=== PATIENT | male | born 1980 | race Caucasian/White ===

== ENCOUNTER 2020-11-12 19:27 | Emergency (ER) | payer OTHER ==
[2020-11-12 19:42] VITALS: BP 158/85; PULSE 85; RESP 20; TEMP 98.1
--- NOTE | 2020-11-12 20:02 | ED ---
General Adult HPI - General Chief complaint: Syncope Stated complaint: Syncope Time Seen by Provider: 11/12/20 19:44 Source: patient Mode of arrival: wheelchair Limitations: no limitations - History of Present Illness Initial comments: Dictation was produced using [employer] dictation software. please excuse any grammatical, word or spelling errors. This patient was cared for during a federal and state declared state of emergency secondary to Covid 19 Chief Complaint: 40-year-old male presents with syncope and back pain History of Present Illness: Patient is 40-year-old male. He is a regular marijuana user. Patient states he had an episode of syncope around known today. Patient states he had 2 of his friends with him. He was not told that he any convulsive episodes. Patient states that after fall he noticed he had severe back pain. Patient states his pain associated look a to the midline back. States that pain radiates down his bilateral posterior thighs. Patient denies any loss of bowel or bladder control. Denies any saddle anesthesia. No fever or chills or night sweats. Patient states he felt fine prior to the episode of syncope. Patient has any cardiac disease. Patient does not follow with a doctor regularly. He denies any medications on a regular basis. He prefers homeopathic and natural treatments. Patient does not want any blood draws, needle sticks or medicine administration. The ROS documented in this emergency department record has been reviewed and confirmed by me. Those systems with pertinent positive or negative responses have been documented in the HPI. All other systems are other negative and/or noncontributory. PHYSICAL EXAM: General Impression: Alert and oriented x3, acute distress secondary to pain HEENT: Normocephalic atraumatic, extra-ocular movements intact, pupils equal and reactive to light bilaterally, mucous membranes moist. Cardiovascular: Heart regular rate and rhythm Chest: Able to complete full sentences, no retractions, no tachypnea Abdomen: abdomen soft, non-tender, non-distended, no organomegaly Musculoskeletal: Pulses present and equal in all extremities, no peripheral edema Back: Tenderness to his lumbar spinal area, positive straight leg test bilaterally Motor: no focal deficits noted Neurological: CN II-XII grossly intact, no focal motor or sensory deficits noted Skin: Intact with no visualized rashes Psych: Normal affect and mood ED course: 40-year-old male resents to the emergency department for back pain after syncopal fall. Vital signs upon arrival are within acceptable limits. EKGs benign. Physical examination is benign. Patient's well-appearing and does have stable vital signs. No indication for laboratory evaluation. Furthermore, patient is refusing any blood draws. EKG is unremarkable without any signs of hypertrophic cardiomyopathy, prolonged QT, WPW, ARVD or Brugada. Patient is refusing blood draw, he is also refusing any oral medications. Patient however is agreeable for CT imaging. Computed tomography scan of the lumbar spine shows no acute processes this out. A BA L5-S1 disc bulge without any spinal cord compromise. Patient is agreeable for discharge. He is given referral to a back specialist. Patient advised to rest. EKG interpretation: Ventricular rate 61, normal sinus rhythm,. Interval 22, QRS 80, QTc 392. No MN prolongation, no QTC prolongation, no ST or T-wave changes noted. Overall, this EKG is unremarkable - Related Data Allergies Allergy/AdvReac Type Severity Reaction Status Date / Time No Known Allergies Allergy Verified 11/12/20 19:42 Review of Systems ROS Statement: Those systems with pertinent positive or pertinent negative responses have been documented in the HPI. ROS Other: All systems not noted in ROS Statement are negative. Past Medical History Past Medical History: No Reported History Past Surgical History: No Surgical Hx Reported Past Psychological History: No Psychological Hx Reported Smoking Status: Never smoker Past Alcohol Use History: None Reported Past Drug Use History: Marijuana General Exam Limitations: no limitations Course Vital Signs 11/12/20 19:40 Temperature 98.1 F Pulse Rate 85 Respiratory 20 Rate Blood Pressure 158/85 O2 Sat by Pulse 99 Oximetry Disposition Clinical Impression: Back pain Disposition: HOME SELF-CARE Condition: Good Instructions (If sedation given, give patient instructions): Acute Low Back Pain (ED) Is patient prescribed a controlled substance at d/c from ED?: No Referrals: January Boone DO [Doctor of Osteopathic Medicine] - 1-2 days Time of Disposition: 20:31
--- NOTE | 2020-11-12 20:23 | CT ---
EXAMINATION TYPE: CT lumbar spine wo con DATE OF EXAM: 11/12/2020 COMPARISON: None HISTORY: Syncopal episode, fall, low back pain. CT DLP: 1644.6 mGycm Automated exposure control for dose reduction was used. Images were obtained from T12 to S2 vertebra without contrast. Lumbar vertebra have normal alignment. Disc spaces are fairly normal. There is no paraspinal mass. Th ere is no compression fracture. Sacroiliac joints appear intact. Posterior elements are intact. Facet joints appear normal. The neural foramina appear widely patent. There is small posterior disc bulgin g at L5-S1 without compromise of the spinal canal. IMPRESSION: Negative CT scan of the lumbar spine.
== END 2020-11-12 20:42 | disposition home or self-care (01) ==
LOC: EC 19:27
DX: M54.9 Dorsalgia, unspecified (principal); R55 Syncope and collapse
CPT/HCPCS: 72131; 93005; 99284

== ENCOUNTER 2025-01-12 17:43 | Emergency (ER) | payer OTHER ==
--- NOTE | 2025-01-12 18:15 | ED ---
General Adult HPI - General Chief complaint: Neuro Symptoms/Deficit Stated complaint: arms are numb and vision change Time Seen by Provider: 01/12/25 18:05 Source: patient, family Mode of arrival: ambulatory Limitations: no limitations - History of Present Illness Initial comments: Dictation was produced using [employer] dictation software. please excuse any g rammatical, word or spelling errors. Chief Complaint: 44-year-old male with no significant comorbidities presents emergency department for bitemporal hemianopsia, concerns of seizure and neuropathy History of Present Illness: Patient is a 44-year-old male he was in [place] driving back. Last night at around 7 PM he started to feel the chills. Patient states that he had a seizure after being tremulous. He woke up on the floor covered in poop and without his clothes on. States that at that time he had some tingling to both of his hands and his leg. States that the neuropathy symptoms resolved on its own. States that he is having bitemporal hemianopsia. Denies any obvious sick contacts. No neck stiffness or neck pain. The ROS documented in this emergency department record has been reviewed and confirmed by me. Those systems with pertinent positive or negative responses have been documented in the HPI. All other systems are other negative and/or noncontributory. - Related Data Home Medications Medication Instructions Recorded Confirmed No Known Home Medications 01/12/25 01/12/25 Allergies Allergy/AdvReac Type Severity Reaction Status Date / Time No Known Allergies Allergy Verified 01/12/25 18:36 Review of Systems ROS Statement: Those systems with pertinent positive or pertinent negative responses have been documented in the HPI. ROS Other: All systems not noted in ROS Statement are negative. Past Medical History Past Medical History: No Reported History Past Surgical History: No Surgical Hx Reported Past Psychological History: No Psychological Hx Reported Smoking Status: Never smoker Past Alcohol Use History: None Reported Past Drug Use History: Marijuana General Exam - General Exam Comments Initial Comments: PHYSICAL EXAM: General Impression: Alert and oriented x3, not in acute distress HEENT: Normocephalic atraumatic, extra-ocular movements intact, pupils equal and reactive to light bilaterally, mucous membranes moist. Cardiovascular: Heart regular rate and rhythm Chest: Able to complete full sentences, no retractions, no tachypnea Abdomen: abdomen soft, non-tender, non-distended, no organomegaly Musculoskeletal: Pulses present and equal in all extremities, no peripheral edema Motor: no focal deficits noted Neurological: CN II-XII grossly intact, no focal motor or sensory deficits noted Skin: Intact with no visualized rashes Psych: Normal affect and mood Limitations: no limitations Course Vital Signs 01/12/25 17:50 Temperature 101.6 F H Pulse Rate 102 H Respiratory 20 Rate Blood Pressure 157/99 O2 Sat by Pulse 96 Oximetry EKG Findings - EKG Comments: EKG Findings:: My EKG interpretation: Ventricular rate 97, sinus rhythm,. 135, QRS 92, QTc 382. No ME prolongation, no QTC prolongation, no ST or T-wave changes notedOverall, this EKG is unremarkable Medical Decision Making - Medical Decision Making Was pt. sent in by a medical professional or institution ([facility], DOOR OPENER, urgent care, hospital, or custodial...) When possible be specific @ -No Did you speak to anyone other than the patient for history (EMS, parent, family, police, friend...)? What history was obtained from this source @ -No Did you review nursing and triage notes (agree or disagree)? Why? @ -I reviewed and agree with nursing and triage notes Were old charts reviewed (outside hosp., previous admission, EMS record, old EKG, old radiological studies, urgent care reports/EKG's, custodial records)? Report findings @ -No old charts were reviewed Differential Diagnosis (chest pain, altered mental status, abdominal pain women, abdominal pain men, vaginal bleeding, musculoskeletal, weakness, fever, dyspnea, syncope, headache, dizziness, GI bleed, back pain, seizure, CVA, palpatations, mental health)? @ -Differential Fever: Pneumonia, viral URI, endocarditis, myocarditis, pericarditis, otitis, sinusitis, peritonsillar Abscess, retropharyngeal Abscess, epiglottitis, peritonitis, appendicitis, Lesli cystitis, diverticulitis, hepatitis, colitis, UTI, PID, TOA, pyelonephritis, prostatitis, epididymitis, meningitis, encephalitis, pulmonary embolism, CVA, thyroid storm, pancreatitis, adrenal crisis, cavernous sinus thrombosis, this is not meant to be an all-inclusive list. EKG interpreted by me (3pts min.). @ -See above X-rays interpreted by me (1pt min.). @ -Chest x-ray shows no acute processes CT interpreted by me (1pt min.). @ -CT brain shows no acute processes U/S interpreted by me (1pt. min.). @ -None done What testing was considered but not performed or refused? (CT, X-rays, U/S, labs)? Why? @ -None What meds were considered but not given or refused? Why? @ -None Was smoking cessation discussed for >3mins.? @ -No Were there social determinants of health that impacted care today? How? (Homelessness, low income, unemployed, alcoholism, drug addiction, transportation, low edu. Level, literacy, decrease access to med. care, senior care, rehab)? @ -No Was there de-escalation of care discussed even if they declined (Discuss DNR or withdrawal of care, Hospice)? DNR status @ -No What co-morbidities impacted this encounter? (DM, HTN, Smoking, COPD, CAD, Cancer, CVA, ARF, Chemo, Hep., AIDS, mental health diagnosis, sleep apnea, morbid obesity)? @ -None Was patient admitted / discharged? Hospital course, mention meds given and route, prescriptions, significant lab abnormalities, going to OR and other pertinent info. @ -44-year-old male presents emergency department with fever, flulike symptoms associated with bilateral temporal hemianopsia and syncope. Patient has no significant comorbidities. Vital signs upon arrival shows pyrexia of one 1.6 heart rate of 102. Rest of labs unremarkable. Patient well-appearing at the bedside without any focal findings. Laboratory evaluation obtained. CBC metabolic panel is unremarkable. Influenza A is positive. CT brain is unremarkable chest x-ray nonacute. Patient reevaluated bedside after given fluids and antipyretics with improvement of symptoms. Likely these are all flu related symptoms. Mechanical compression of the optic chiasm was considered giv en that patient did have complaint of bilateral temporal hemianopsia. Told to follow-up with his primary care doctor or schedule appoint with neurologist if his symptoms do not improve. Patient offered Tamiflu and did not feel that that was necessary. Told to take [id number] Motrin Tylenol for fever. Did you discuss the management of the patient with other professionals (professionals i.e. , PA, DOOR OPENER, lab, RT, psych nurse, psychologist social, meat market manager, teacher, conservation enforcement officer, renal case manager)? Give summary @ -No Was critical care preformed (if so, how long)? @ -No Undiagnosed new problem with uncertain prognosis? @ -No Drug Therapy requiring intensive monitoring for toxicity (Heparin, Nitro, Insulin, Cardizem)? @ -No Were any procedures done? @ -No Diagnosis/symptom? Acute, or Chronic, or Acute on Chronic? Uncomplicated (without systemic symptoms) or Complicated (systemic symptoms)? @ -Influenza Side effects of treatment? @ -No Exacerbation, Progression, or Severe Exacerbation? @ -No Poses a threat to life or bodily function? How? (Chest pain, USA, MT, pneumonia, PE, COPD, DKA, ARF, appy, cholecystitis, CVA, Diverticulitis, Homicidal, Suicidal, threat to staff... and all critical care pts) @ -No - Lab Data Result diagrams: 01/12/25 18:32 01/12/25 18:32 Lab Results 01/12/25 01/12/25 01/12/25 Range/Units 18:32 18:32 18:32 WBC 6.1 (3.8-10.6) k/uL RBC 5.19 (4.30-5.90) m/uL Hgb 15.8 (13.0-17.5) gm/dL Hct 47.2 (39.0-53.0) % MCV 91.0 (80.0-100.0) fL MCH 30.4 (25.0-35.0) pg MCHC 33.4 (31.0-37.0) g/dL RDW 13.9 (11.5-15.5) % Plt Count 115 L (150-450) k/uL MPV 8.5 Neutrophils % 67 % Lymphocytes % 16 % Monocytes % 13 % Eosinophils % 0 % Basophils % 0 % Neutrophils # 4.1 (1.3-7.7) k/uL Lymphocytes # 1.0 (1.0-4.8) k/uL Monocytes # 0.8 (0-1.0) k/uL Eosinophils # 0.0 (0-0.7) k/uL Basophils # 0.0 (0-0.2) k/uL Sodium 134 L (137-145) mmol/L Potassium 4.0 (3.5-5.1) mmol/L Chloride 98 (98-107) mmol/L Carbon Dioxide 27 (22-30) mmol/L Anion Gap 9 mmol/L BUN 13 (9-20) mg/dL Creatinine 1.23 (0.66-1.25) mg/dL Est GFR (CKD-EPI)AfAm 84 (>60 ml/min/1.73 sqM) Est GFR (CKD-EPI)NonAf 72 (>60 ml/min/1.73 sqM) Glucose 95 (74-99) mg/dL Plasma Lactic Acid Madi 0.9 (0.7-2.0) mmol/L Calcium 9.3 (8.4-10.2) mg/dL Magnesium 1.9 (1.6-2.3) mg/dL Total Bilirubin 0.7 (0.2-1.3) mg/dL AST 34 (17-59) U/L ALT 84 H (4-49) U/L Alkaline Phosphatase 51 (38-126) U/L Total Protein 6.7 (6.3-8.2) g/dL Albumin 4.4 (3.5-5.0) g/dL Influenza Type A (PCR) (Not Detectd) Influenza Type B (PCR) (Not Detectd) RSV (PCR) (Not Detectd) SARS-CoV-2 (PCR) (Not Detectd) 01/12/25 Range/Units 18:32 WBC (3.8-10.6) k/uL RBC (4.30-5.90) m/uL Hgb (13.0-17.5) gm/dL Hct (39.0-53.0) % MCV (80.0-100.0) fL MCH (25.0-35.0) pg MCHC (31.0-37.0) g/dL RDW (11.5-15.5) % Plt Count (150-450) k/uL MPV Neutrophils % % Lymphocytes % % Monocytes % % Eosinophils % % Basophils % % Neutrophils # (1.3-7.7) k/uL Lymphocytes # (1.0-4.8) k/uL Monocytes # (0-1.0) k/uL Eosinophils # (0-0.7) k/uL Basophils # (0-0.2) k/uL Sodium (137-145) mmol/L Potassium (3.5-5.1) mmol/L Chloride (98-107) mmol/L Carbon Dioxide (22-30) mmol/L Anion Gap mmol/L BUN (9-20) mg/dL Creatinine (0.66-1.25) mg/dL Est GFR (CKD-EPI)AfAm (>60 ml/min/1.73 sqM) Est GFR (CKD-EPI)NonAf (>60 ml/min/1.73 sqM) Glucose (74-99) mg/dL Plasma Lactic Acid Madi (0.7-2.0) mmol/L Calcium (8.4-10.2) mg/dL Magnesium (1.6-2.3) mg/dL Total Bilirubin (0.2-1.3) mg/dL AST (17-59) U/L ALT (4-49) U/L Alkaline Phosphatase (38-126) U/L Total Protein (6.3-8.2) g/dL Albumin (3.5-5.0) g/dL Influenza Type A (PCR) Detected A (Not Detectd) Influenza Type B (PCR) Not Detected (Not Detectd) RSV (PCR) Not Detected (Not Detectd) SARS-CoV-2 (PCR) Not Detected (Not Detectd) Disposition Clinical Impression: Influenza Disposition: HOME SELF-CARE Condition: Fair Instructions (If sedation given, give patient instructions): Influenza (ED) Is patient prescribed a controlled substance at d/c from ED?: No Referrals: None,Stated [Primary Care Provider] - 1-2 days Time of Disposition: 20:20
[2025-01-12] MEDS: ACETAMINOPHEN TAB 500 MG TAB PO STA (18:36)
[2025-01-12] MEDS: SODIUM CHLORIDE 0.9% 1,000 ML IV STA (18:37)
[2025-01-12 18:50] LABS: ALT 84 U/L (4-49); AST 34 U/L (17-59); African American GFR (CKD) 84 (>60 ml/min/1.73 sqM); Albumin 4.4 g/dL (3.5-5.0); Alkaline Phosphatase 51 U/L (38-126); Anion Gap 9 mmol/L; Blood Urea Nitrogen 13 mg/dL (9-20); Calcium 9.3 mg/dL (8.4-10.2); Carbon Dioxide 27 mmol/L (22-30); Chloride 98 mmol/L (98-107); Glucose 95 mg/dL (74-99); Magnesium 1.9 mg/dL (1.6-2.3); Non-African American GFR(CKD) 72 (>60 ml/min/1.73 sqM); Sodium 134 mmol/L (137-145); Total Bilirubin 0.7 mg/dL (0.2-1.3); Total Protein 6.7 g/dL (6.3-8.2)
[2025-01-12 18:53] LABS: Basophils % (A) 0 %; Eosinophils % (A) 0 %; HCT 47.2 % (39.0-53.0); HGB 15.8 gm/dL (13.0-17.5); Lymphocytes % (A) 16 %; MCH 30.4 pg (25.0-35.0); MCHC 33.4 g/dL (31.0-37.0); Mean Platelet Volume 8.5; Monocytes # (A) 0.8 k/uL (0-1.0); Monocytes % (A) 13 %; Neutrophils # (A) 4.1 k/uL (1.3-7.7); Neutrophils % (A) 67 %; Platelet Count 115 k/uL (150-450); RBC 5.19 m/uL (4.30-5.90); RDW 13.9 % (11.5-15.5); WBC 6.1 k/uL (3.8-10.6)
[2025-01-12 19:14] LABS: Influenza A Detected (Not Detectd); Influenza B Not Detected (Not Detectd); RSV Not Detected (Not Detectd)
--- NOTE | 2025-01-12 19:43 | XR ---
EXAMINATION TYPE: XR chest 2V DATE OF EXAM: 01/12/2025 7:24 PM COMPARISON: None. CLINICAL INDICATION: Male, 44 years old with history of fever, TECHNIQUE: Frontal and lateral views of the chest are obtained. FINDINGS: Somewhat low lung volumes. There is no focal air space opacity, pleural effusion, or pneumo thorax seen. Mild cardiomegaly. Overlying EKG leads are present. The osseous structures are intact. IMPRESSION: Low lung volumes and mild cardiomegaly without acute pulmonary process. [facility], , 01/12/2025 7:41 PM
--- NOTE | 2025-01-12 20:11 | CT ---
EXAMINATION TYPE: CT brain wo con DATE OF EXAM: 01/12/2025 COMPARISON: None. CLINICAL INDICATION: Male, 44 years old with history of fever; PHH, LOC last night and woke up on the ground in the morning. patient now states he can see peripheral vision, lethargy, numbness right neal d and left foot, shortness of breath. TECHNIQUE: CT of the brain performed without contrast with sagittal and coronal reformats. CT DLP: 1225.4 mGycm Automated exposure control for dose reduction was used. FINDINGS: There is no acute intracranial hemorrhage, mass effect, or midline shift identified. The ventricles and sulci are within normal limits in size. Zacarias-white matter differentiation is preserved. The globe s are intact bilaterally. There is mucosal thickening and dependent fluid in the left sphenoid sinus. There is mucosal thickening and moderate opacification of ethmoid sinuses bilaterally. There is mild -to-moderate mucosal thickening inferior right maxillary sinus. There is complete opacification of le ft maxillary sinus IMPRESSION: No acute intracranial hemorrhage or midline shift is seen. Consider MRI follow-up if clinical symptom s persist. Acute on chronic paranasal sinus disease is suspected. Correlate clinically. [facility], , 01/12/2025 8:09 PM
[2025-01-12 20:44] VITALS: BP 116/76; PULSE 85; RESP 18; TEMP 98.5
== END 2025-01-12 20:41 | disposition home or self-care (01) ==
LOC: EC 17:43
DX: J10.1 Influenza due to other identified influenza virus with other respiratory manifestations (principal)
CPT/HCPCS: 36415; 70450; 71046; 80053; 83605; 83735; 85025; 87636; 93005; 96360; 99284